=== PATIENT | male | born 1960 ===

== ENCOUNTER 2023-03-01 05:49 | Day surgery (SDC) | payer OTHER ==
[2023-02-22 10:23] LABS: HEMATOCRIT 47.4 % (39.0-48.0); MEAN CELL VOLUME 106.8 fL (80.0-100.00); MEAN CORPUSCULAR HGB CONC 33.7 g/dl (32.0-36.0); PLATELET COUNT 517 K/uL (150-450); RED BLOOD COUNT 4.44 M/uL (4.00-6.00); RED CELL DISTRIBUTION WIDTH 13.6 % (11.5-14.5)
[2023-02-22 10:41] LABS: PH,URINE 7.5 (5.0-8.0); URINE APPEARANCE Clear; URINE BILIRRUBIN Negative (NEGATIVE); URINE BLOOD Negative; URINE COLOR Yellow; URINE GLUCOSE Negative (NEGATIVE); URINE LEUKOCYTE Negative; URINE NITRATE Negative; URINE PROTEIN Negative (NEGATIVE); URINE UROBILINOGEN 0.2 E.U./dl
[2023-02-22 10:42] LABS: INR 0.96; PARTIAL THROMBOPLASTIN TIME 27.1 SECONDS (22.0-34.0); PROTHROMBIN TIME 10.1 SECONDS (9.0-11.5)
[2023-02-22 10:46] LABS: URINE RBC 8.4 uL (0.0-20.8); URINE WBC 1.8 uL (0.0-23.2)
[2023-02-22 10:49] LABS: ALBUMIN 3.7 gm/dL (3.4-5.0); BILIRUBIN TOTAL 1.01 mg/dL (0.3-1.2); CREATININE SERUM 0.95 mg/dL (0.70-1.30); GFR 80.33; POTASSIUM 4.58 mEq/L (3.5-5.1); TOTAL PROTEIN 7.7 gm/dL (6.4-8.2)
[2023-02-22 11:33] LABS: URINE BACTERIA 1.2 uL (0.0-1933); URINE EPITHELIAL CELLS 0.7 uL (0.0-38.8)
== END 2023-03-01 16:00 | disposition home or self-care (01) ==
LOC: CIR.AMB 05:49
PROVIDERS: ATTEND Surgery
DX: K40.90 Unilateral inguinal hernia, without obstruction or gangrene, not specified as recurrent (principal); E78.5 Hyperlipidemia, unspecified; Z20.822 Contact with and (suspected) exposure to COVID-19
CPT/HCPCS: 49650; C1781